=== PATIENT | male | born 1995 | race Caucasian/White ===

== ENCOUNTER → 2017-01-30 | Outpatient (CLI) | payer OTHER | LOC: FIMAGING 09:15 | PROVIDERS: ATTEND Specialist | DX: S66.110A Strain of flexor muscle, fascia and tendon of right index finger at wrist and hand level, initial encounter (principal) ==

== ENCOUNTER 2017-03-03 17:55 | Emergency (ER) | payer OTHER ==
[2017-03-03 18:23] VITALS: RESP 16; TEMP 98.6
--- NOTE | 2017-03-03 19:59 | EDPHY ---
General - History Smoking Status: Heavy smoker Narrative: CHIEF COMPLAINT: Postoperative complaint, blew thumb HISTORY OF PRESENT ILLNESS: Patient is postop day 4 from a right hand surgery that was reportedly tendon graft and repair. He had an extensive injury to the right index finger 2 years ago that left him without flexion of the finger. Surgery was to correct this. There was a donor site from the right wrist of unknown tendon. Surgery was done on the . He was discharged home with splint in place. Postoperatively he did well until today, when he noted that his right thumb was blue in appearance. This was circumferential. It is not painful. There is no numbness or tingling. There is no difficulty moving the thumb. He has got no changes in the altered sensation of the hand otherwise, reportedly still at baseline from surgery. She has had no fever or chills. He has had no pain in the right arm, forearm or shoulder. No other associated complaints. No modifying factors for this. ESTABLISHED ORTHOPEDIST: Dr. Gonzalez REVIEW OF SYSTEMS: Ten systems reviewed and are negative unless otherwise noted in the HPI EXAMINATION General Appearance: Alert, no distress Cardiovascular: Pulses normal throughout. Symmetric radial pulses are 2+. Cap refill is approximately 1.5 seconds in all fingers on the right hand. Neurological: Alert oriented. Sensory of the right hand reveals paresthesia in fingers 2-4. Sensory intact in the right thumb. Skin: Warm and dry, no rash. Ecchymosis to the right thumb on the dorsum and minimally on the ulnar aspect. This is non circumferential. No ecchymosis or cyanosis of the dorsum of the hand. Extremities: Range of motion is not fully tested on the right index finger as he has postoperative limitations. Range of motion of the right thumb and wrist are fully intact. There is no wrist drop. Psychiatric: Mood and affect normal DIFFERENTIAL DIAGNOSES: Including but not limited to ecchymosis, cyanosis, postoperative complication MDM: 7:04 p.m. Ecchymosis and mild cyanosis to the right thumb. He is postop day 4 from a tendon transfer and repair on the right index finger, with a donor site of the right wrist. There is some paresthesias to the fingers that is persistent from surgery. There is no weakness of the right thumb. Cap refill right thumb is the same as all other 4 fingers. No pain of the thumb at rest. I discussed the case with Dr. Mehta, and she will evaluate the patient. 8:[address] Mehta has examined the patient. She agrees that this is more likely ecchymosis than vascular compromise. I have paged Dr. Mace to discuss. 8:20 p.m. I discussed the case with Dr. Mace. I described the patient's appearance and neurovascular status. He is instructed me to place the patient back in a splint and discharged him home. He feels that he can follow up this week with the surgeon. I informed him that we would like to have the patient seen tomorrow in, he says the patient can contact the office to be worked into more. I have it here his recommendations. I have re-evaluated the patient, he still remains neuro intact in the right thumb. He has got a 2+ radial pulse on the right. I do feel this is more ecchymosis than vascular injury. The dorsum of the hand is warm to the touch with good signs of perfusion in all fingers. He is discharged home in a splint with the above instructions. He is to return to the ER for any cold sensation to the thumb, paresthesia or anesthesia of the thumb, difficulty moving the thumb or sensory changes in the back of the hand. ED Precautions: Worsening pain. Erythema, edema, cyanosis, pallor, paresthesia or anesthesia. SUPERVISION: Patient was evaluated in conjunction with the supervising physician. Please see their note for details. (Jaiden Pierre) Discussion: I evaluated and participated in the management of the patient. My co-signature indicates that I have reviewed this chart and I agree with thefindings and plan of care as documented. My personal H&P findings include: 21 year old male with concerns regarding color changes to thumb several days post op. Patient has had no pain, numbness or tingling to the thumb. On exam, he has a dusky, ecchymotic appearance to the thumb, on the dorsal aspect. Capillary refill under two seconds, slightly slow in thumb but same as in all fingers. Normal sensation to finger tip and ROM at the thumb limited due to post operative constraints. Patient reassured and placed in splint. Case discussed with Dr Mace. Patient has appointment in [address] Gonzalez. (Delilah Mehta) - Objective Vital Signs: Initial Vital Signs Temperature (C) 37.0 C 04/10/17 18:19 Heart Rate 84 03/03/17 18:19 Respiratory Rate 16 03/03/17 18:19 Blood Pressure 108/73 03/03/17 18:19 O2 Sat (%) 98 03/03/17 18:19 O2 Delivery Mode Room Air Allergies/Adverse Reactions: No Known Allergies Allergy (Verified 03/03/17 18:23) Home Medications: Medication Instructions Recorded Cephalexin 03/03/17 Gabapentin 03/03/17 Hydrocodon-Acetaminophen 5-325 03/03/17 Departure - Departure Disposition: Home, Routine, Self-Care Clinical Impression: Ecchymosis Condition: Good Instructions: Ecchymosis (ED) Additional Instructions: Keep splint in place. Contact Dr. Gonzalez in the morning for re-evaluation tomorrow. Return to the ER for changes in neurovascular status as discussed. Referrals: ANNA NEAL [Other] - As per Instructions Tha Gonzalez MD [Medical Doctor] - As per Instructions
[2017-03-03 21:15] VITALS: BP 129/68; PULSE 71; O2SAT 96
== END 2017-03-03 21:15 | disposition home or self-care (01) ==
DX: M96.831 Postprocedural hemorrhage of a musculoskeletal structure following other procedure (principal); F17.200 Nicotine dependence, unspecified, uncomplicated